=== PATIENT | female | born 1945 | race Caucasian/White ===

== ENCOUNTER 2021-10-08 08:07 | Day surgery (SDC) | payer MEDICARE, BC, SELFPAY ==
[2021-10-08 08:28] VITALS: BP 171/71; PULSE 58; RESP 16; TEMP 37; O2SAT 99
[2021-10-08] MEDS: Tropicam./Phenyleph. (1/2.5%) 5 ML BTL ×3 (08:43→08:59)
--- NOTE | 2021-10-08 08:56 | W.ANESPRE ---
General Info Date of Service Date Performed: 10/08/21 Height: 4 ft 8 in Weight: 54 kg Body Mass Index (BMI): 26.6 Surgical Procedure: Operation Date: 10/08/21 09:55 Proposed Procedure Side Surgeon p Cataract Extraction with IOL Implant Right Jimmy Day MD Meds Allergies and Home Medications Allergies Allergy/AdvReac Type Severity Reaction Status Date / Time erythromycin base Allergy Intermediate rash, Verified 10/08/21 08:25 nausea nystatin Allergy Intermediate Skin Rash Verified 10/08/21 08:25 Penicillins Allergy Intermediate Hives Verified 10/08/21 08:25 simvastatin AdvReac Intermediate myalgia Verified 10/08/21 08:25 diltiazem AdvReac Unknown myalgia Verified 10/08/21 08:25 losartan AdvReac Unknown myalgia Verified 10/08/21 08:25 Home Medication Medication Instructions Recorded apixaban 5 mg tablet 5 mg PO BID 10/04/21 budesonide 3 mg 9 mg PO DAILY PRN 10/04/21 capsule,delayed,extended release cholecalciferol (vitamin D3) 125 125 mcg PO DAILY 10/04/21 mcg (5,000 unit) tablet (Vitamin D3) clotrimazole 1 % topical cream 1 applic TOPICAL BID PRN 10/04/21 furosemide 20 mg tablet 20 mg PO DAILY PRN 10/04/21 hydrochlorothiazide 25 mg tablet 12.5 mg PO DAILY 10/04/21 hydrocortisone-aloe vera 1 % 1 applic TOPICAL BID PRN 10/04/21 topical cream (Cortizone-10 with aloe) lisinopril 5 mg tablet 5 mg PO BID 10/04/21 metoprolol tartrate 25 mg tablet 25 mg PO Q8H 10/04/21 multivitamin,zl-iwxb-Vv-FA-min 1 tab PO DAILY 10/04/21 triamcinolone acetonide 0.025 % 1 applic TOPICAL BID 10/04/21 lotion zinc 50 mg tablet 50 mg PO DAILY 10/04/21 Current Visit Medications: Current Medications Generic Name Dose Route Start Last Admin Trade Name Freq PRN Reason Stop Dose Admin Acetaminophen 1,000 mg 10/08/21 06:00 Acetaminophen 500 Mg Tab PO Q4H PRN PRN Miscellaneous Medication 0 ml 10/08/21 06:00 Prednisolone 1%, Moxifloxacin 0.5%, Nepafenac 0.1% 5ml Btl OD DIRECTED DEEDEE Miscellaneous Medication 0 ml 10/08/21 08:45 Tropicam./Phenyleph. (1/2.5%) 5 Ml Btl OD DIRECTED DEEDEE Tetracaine HCl 0 ml 10/08/21 08:45 Tetracaine 0.5% 4 Ml Btl OD DIRECTED DEEDEE PFSH Active Problems Active Problems: Problem Status Onset Code Cortical cataract of right eye H26.9 Nuclear sclerotic cataract of right eye H25.11 Medical History Medical History A-fib F/U with cardiology [facility] 09/18/2021-aware of cataract procedure Medically managed on Eliquis Adrenal abnormality Benign essential HTN Cardiac murmur Cataract Change in bowel habits Collagenous colitis Endometrial cancer GERD (gastroesophageal reflux disease) History of abnormal mammogram History of cardioversion 04/26/2020-F/U with cardiology [facility] [place] [facility] 09/18/2021-aware of cataract procedure HLD (hyperlipidemia) LVH (left ventricular hypertrophy) F/U with cardiology [facility] 09/18/2021-aware of cataract procedure Menopause Migraine Osteoporosis Overweight Papule of skin Peripheral retinal degeneration PSVT (paroxysmal supraventricular tachycardia) F/U with cardiology [facility] [place] [facility] 09/18/2021-aware of cataract procedure Statin declined Type II diabetes mellitus Medical History Comments:: When she had the plate put in her wrist, she went bradycardic. Surgical History Surgical History History of bilateral ligation of fallopian tubes History of carpal tunnel release History of surgery on wrist metal plate implant of (L) wrist Hx of breast biopsy Hx of colonoscopy Hx of esophagogastroduodenoscopy Hx of hysterectomy Hx of thumb surgery Tobacco Smoking/Tobacco Use Status: Former Tobacco Use Alcohol Alcohol Intake: former Substance Use Substance use: Never Substance use type: does not use Vital Signs and Lab Results Vital Signs Most Recent Vital Signs in EMR: Most Recent Vital Signs Temp Pulse Resp BP Pulse Ox 37.0 C 58 L 16 171/71 H 99 10/08/21 08:28 10/08/21 08:28 10/08/21 08:28 10/08/21 08:28 10/08/21 08:28 Lab Results Blood Type / Crossmatch: No Data to Display Complete Blood Count: No Data to Display Complete Metabolic Panel: No Data to Display Liver Function Panel: No Data to Display Coagulation Panel: No Data to Display Cardiac Panel: No Data to Display Arterial Blood Gas: No Data to Display Venous Blood Gas: No Data to Display Pancreas Panel: No Data to Display Thyroid Panel: No Data to Display Infectious Disease: No Data to Display Blood Cultures: No Data to Display Toxicology Panel: No Data to Display Anesthesia Assessment and Plan Anesthesia History Personal History: Other Family History: No Family History of Anesthesia Complications Exercise Tolerance Exercise Tolerance: Metabolic Equivalents>4 Pertinent Negatives Pertinent Negatives: No Symptoms of GERD Cardiac & Pulmonary Exam Cardiac Exam: Normal S1/S2 Heart Sounds Pulmonary Exam: Clear Bilateral Breath Sounds Implantable Cardiac Device Does patient have a Pacemaker or an ICD?: No Airway Exam Known Difficult Airway: No Mallampati Class: 2 Mouth Opening: Normal (> 3cm) Thyromental Distance: Greater than 3 cm Neck Range of Motion: Full ROM Neck Circumference: Normal Teeth Condition: Normal Dentition ASA Classification ASA Score: ASA 2 Emergency Case?: No NPO Status NPO Status: NPO Clears >2 hours, Solids >8 hours Anesthesia Plan Resuscitation Status: Full Code Anesthesia Technique: MAC Anesthesia Airway Planned: Natural Airway Monitors Used: Standard Monitors
[2021-10-08 08:57] VITALS: BMI 26.6
[2021-10-08] MEDS: Normal Saline 500 ML 20 ML IV (09:06)
[2021-10-08] MEDS: Tetracaine 0.5% 4 ML BTL (09:26)
[2021-10-08] MEDS: Balanced Salt Soln.-PLUS 500 ML BAG (09:27)
[2021-10-08] MEDS: Duovisc Viscoelastic System EACH 1 EACH (09:28)
[2021-10-08] MEDS: Povidone-Iodine Ophth 30 ML BTL (09:29)
[2021-10-08] MEDS: Lidocaine 2% Jelly 6 ML SYR (09:29)
[2021-10-08 09:47] VITALS: BP 150/65; PULSE 48; RESP 16; TEMP 36.3; O2SAT 96
--- NOTE | 2021-10-08 09:48 | W.PM.DSUDISC ---
Discharge Plan Disposition Patient Disposition: HOME Condition: Good Discharge Details Attending Provider: Jimmy Day Primary Care Provider: Mikaela Leung Home Meds and New Rx's Prescriptions: No Action triamcinolone acetonide 0.025 % Lotion 1 applic TOPICAL BID 0RF hydrocortisone-aloe vera [Cortizone-10 with aloe] 1 % Cream 1 applic TOPICAL BID PRN0RF zinc 50 mg Tablet 50 mg PO DAILY 0RF lisinopril 5 mg Tablet 5 mg PO BID 0RF hydrochlorothiazide 25 mg Tablet 12.5 mg PO DAILY 0RF furosemide 20 mg Tablet 20 mg PO DAILY PRN0RF budesonide 3 mg Capsule,Delayed,Extend.Release 9 mg PO DAILY PRN0RF clotrimazole 1 % Cream 1 applic TOPICAL BID PRN0RF Multivitamin And Mineral Tablet 1 tab PO DAILY 0RF metoprolol tartrate 25 mg Tablet 25 mg PO Q8H 0RF cholecalciferol (vitamin D3) [Vitamin D3] 125 mcg (5,000 unit) Tablet 125 mcg PO DAILY 0RF apixaban 5 mg Tablet 5 mg PO BID 0RF Discharge Instructions Stand Alone Forms: Post-op Block Cataract, Post-op Topical Cataract, Press Ganey (DSU) Discharge Orders Discharge Orders: Discharge Order (Routine); Ordered 10/08/21 Ordered By: Jimmy Day DS: Diagnosis Discharge Diagnosis (1) Cortical cataract of right eye: Status: Resolved (2) Nuclear sclerotic cataract of right eye: Status: Resolved
--- NOTE | 2021-10-08 09:50 | ROE_ITS ---
Date of service: 10/08/21 Time of Service: 09:50 Operative Note Operative Note DATE OF PROCEDURE: 10/08/21 PRE-OP DIAGNOSIS: Nuclear/cortical cataract, POST-OP DIAGNOSIS: same PROCEDURE: Cataract extraction using phacoemulsification with intraocular lens implant, right eye SURGEON: Jimmy Day ANESTHESIA TYPE: Local By Surgeon and MAC Refer to Anesthesia Record ESTIMATED BLOOD LOSS: 0 PATHOLOGY: none sent COMPLICATIONS: None Patient was transported to: same day Patient's condition: stable Implants: Claude & Claude/PATEL Tecnis [id number] Indications: Progressive visual loss due to cataract, right eye Procedure Description: CATARACT SURGERY OPERATIVE REPORT PREOPERATIVE DIAGNOSIS: 1. Nuclear/cortical cataract, right POSTOPERATIVE DIAGNOSIS: Same OPERATION: 1. Cataract extraction using phacoemulsification with posterior chamber intraocular lens implant, right eye. IOL: IOL Brick Paving Checker/Model: Claude & Claude / PATEL Tecnis [id number] IOL Power: + 18 diopters IOL Serial Number: [id number] Optic Diameter: 6.0mm Haptic/Overall Diameter: 13.0mm PHACO INFO: [employer] (ROOF) Vision System with OZil and Active Fluidics Cumulative Dispersed Energy (CDE): 8.36 seconds SURGEON: Jimmy Day MD, MAURY ANESTHESIA: Monitored Anesthesia Care (MAC), with local sub-tenon's anesthetic infiltration COMPLICATIONS: None SPECIMENS: None INDICATIONS FOR PROCEDURE: Patient is a 76-year-old lady with history of bilateral cataracts who has pre viously undergone cataract surgery in her left eye in 2019. She has now developed asymptomatic nuclear/cortical cataract in the right eyes she has a history of monovision, left eye distance right eye near, and desires to stay that way. Postoperative refractive target in the right eye is -2.50. The option of cataract surgery was offered to the patient and she wished to proceed PROCEDURE: The correct surgical eye was identified and marked as the right eye and the pupil was dilated in the preoperative area using mydriatics and cycloplegics. The dilated pupil size was 7.0 mm. IV sedation was given in the form of Versed 1 mg. The patient was brought to the operating room where cardiopulmonary monitoring was instituted and surgical time-out was performed, confirming the correct operative eye and IOL power. Topical anesthesia was administered and ophthalmic povidone-iodine 5% was instilled into the conjunctival fornices. Lidocaine gel was applied to the cornea and the boogie-ocular area was prepped with Betadine 10% solution and draped in the usual sterile fashion for intraocular surgery, including an aperture drape. A Tegaderm transparent film dressing was cut in half and used to cover the lashes and lid margins. Care was taken to sequester the lashes and lid margins under the Tegaderm dressing. A lid speculum was placed between the lids of the operative eye and the Nigel [employer] Revalia operating microscope was maneuvered into position. Sapna scissors were then used to make a conjunctival buttonhole approximately 6mm posterior to the limbus in the inferonasal quadrant. Blunt dissection was carried out to expose bare sclera, and a blunt-tipped sub-tenon?s anesthesia cannula was introduced and passed posteriorly along the globe where non-pres erved plain lidocaine was injected into posterior sub-Tenon?s space. A sideport knife was used to make a paracentesis port inferotemporally. Intraocular phenylephrine/lidocaine was injected into the anterior chamber. The anterior chamber was filled with viscoelastic. A 2.4mm keratome knife was used to create a half-thickness groove at the limbus and then to construct a three-plane near- clear corneal tunnel extending 2.0mm into clear cornea superiortemporally. A flap was raised on the anterior capsule and capsulorhexis forceps were used to complete a continuous curvilinear capsulorhexis of 5.5 mm. Balanced salt solution was then used to perform cortical cleaving hydrodissection and nuclear hydrodelineation until the lens could be freely rotated within the capsular bag. The lens nucleus was then disassembled and removed within the capsular bag and iris plane using phacoemulsification. Residual cortical material was removed using the I/A handpiece. The posterior capsule was carefully polished to remove as much residual lens epithelial cells as safely possible. The capsular bag was then inflated and the anterior chamber deepened with viscoelastic. The lens implant described above was inserted into the capsular bag using the PATEL Vevay Injector. A Kuglen hook was used to dial the IOL into position. Residual viscoelastic was then removed first from posterior to the IOL, then from the anterior chamber using the I/A handpiece. The lens implant was noted to center nicely within the capsular bag. The incisions were stromally hydrated, and the anterior chamber was reformed using BSS. Then 0.5cc of moxifloxacin 1.0mg/ml were injected into the capsular bag and anterior chamber. The incisions were checked with a Weck spear and found to be secure. Several drops of ophthalmic povidone-iodine 5% were then applied to the eye followed by two drops of Imprimis combination prednisolone/moxifloxacin/nepafenac solution. The drapes were removed and a clear plastic protective eye shield was placed over the eye. The patient was then returned to Same Day Surgery in stable condition.
--- NOTE | 2021-10-08 10:14 | W.ANESPOSTOP ---
Postoperative Evaluation Date, Time and Location Date Performed: 10/08/21 Time Performed: 09:50 Patient Location: Day Surgery Unit Vital Signs Most Recent Imported Vital Signs: Most Recent Vital Signs Temp Pulse Resp BP Pulse Ox 36.3 C L 48 L 16 150/65 H 96 10/08/21 09:47 10/08/21 09:47 10/08/21 09:47 10/08/21 09:47 10/08/21 09:47 Pain Score Most Recent Pain Score: Most Recent Pain Score Pain Level 0 10/08/21 09:47 Assessment Mental Status: Awake (Alert & Oriented to Patient Baseline) Airway and Respiratory Function: Patent airway with normal (patient baseline) respiratory exam Cardiovascular Function: Hemodynamically Stable Hydration Status: Adequately Hydrated Nausea & Vomiting: No Nausea or Vomiting Pain: Pt. Denies Any Pain Peripheral Nerve Block: Patient did not receive a nerve block
[2021-10-08 10:15] VITALS: BP 142/48; PULSE 58; RESP 16; TEMP 36.9; O2SAT 96
== END 2021-10-08 10:31 | disposition home or self-care (01) ==
PROVIDERS: PCP Physician Assistant Medical; Visit Provider Ophthalmology
PROC: (CPT 66984; principal; 2021-10-08 09:45)
DX: H25.11 Age-related nuclear cataract, right eye (principal); E11.9 Type 2 diabetes mellitus without complications; I10 Essential (primary) hypertension; I48.91 Unspecified atrial fibrillation
CPT/HCPCS: 66984; V2632; J2250